=== PATIENT | male | born 1985 | race Caucasian/White ===

== ENCOUNTER 2017-06-16 14:03 | Emergency (ER) | payer OTHER ==
[~2017-06-16] VITALS: Ht 167.6 cm; Wt 77.2 kg
[2017-06-16 14:43] LABS: HEMATOCRIT 43.7 % (38.0-50.0); MCH 30.6 PG (29.0-34.0); MCHC 34.6 G/DL (30.0-36.0); MCV 88.5 FL (86-99); MEAN PLAT.VOLUME 9.1 uM^3 (9.0-12.4); PLATELET COUNT 242 K/uL (156-360); RBC DIS.WIDTH-CV 11.9 % (11.8-14.6); RBC DIS.WIDTH-SD 38.2 % (39-53); RED BLOOD COUNT 4.94 M/uL (4.00-5.50); WHITE BLOOD COUNT 12.6 K/uL (4.1-10.2)
[2017-06-16 14:49] LABS: ADD MIUA? YES; BILIRUBIN NEGATIVE; BLOOD SMALL; COLOR STRAW ((YELLOW)); GLUCOSE (STRIP) NEGATIVE; KETONES NEGATIVE; LEUKOCYTES NEGATIVE; NITRITE NEGATIVE; PROTEIN (STRIP) NEGATIVE; SPECIFIC GRAVITY 1.014 (1.000-1.030); UROBILINOGEN 0.2 MG/DL (0.2-1.0)
[2017-06-16 14:51] LABS: BACTERIA NONE SEEN /HPF; EPITHELIAL CELLS NONE SEEN /HPF; MUCUS TRACE /LPF; RED BLOOD CELLS 0-5 /HPF (0-5); UCUL ADDED? NO; WHITE BLOOD CELLS 0-5 /HPF (0-5)
[2017-06-16 14:54] LABS: CHLORIDE 106 mEq/L (99-109); POTASSIUM 3.9 mEq/L (3.7-5.4); SODIUM 140 mEq/L (136-147)
[2017-06-16 14:56] LABS: GLUCOSE 94 mg/dL (70-99)
[2017-06-16 14:57] LABS: ANION GAP 10 MEQ/L (2-14)
[2017-06-16 14:58] LABS: TOTAL BILIRUBIN 0.8 mg/dL (0.0-1.0)
[2017-06-16 14:59] LABS: ALKALINE PHOSPHATASE 75 IU/L (3-129)
[2017-06-16 15:01] LABS: UREA NITROGEN (BUN) 13 mg/dL (9-23)
[2017-06-16 15:08] LABS: GFR ESTIMATE (CALCULATED) > 59 mL/min/
[2017-06-16] MEDS ORDERED: CIPRO500 MG PO (19:00)
[2017-06-16] MEDS ORDERED: FLAGYL500 MG PO (19:00)
[2017-06-16 19:25] VITALS: BP 130/88
== END 2017-06-16 19:28 | disposition home or self-care (01) ==
LOC: EME 14:03
DX: K57.92 Diverticulitis of intestine, part unspecified, without perforation or abscess without bleeding (principal); R19.7 Diarrhea, unspecified; F17.200 Nicotine dependence, unspecified, uncomplicated
CPT/HCPCS: 74177; 80053; 81003; 85027; 87493; 87506; 99281; 99285; J1885; J7030